=== PATIENT | female | born 1945 | race Caucasian/White ===

== ENCOUNTER 2020-01-10 16:18 | Emergency (ER) | payer OTHER ==
[~2020-01-10] VITALS: Ht 170.2 cm; Wt 70.8 kg
--- NOTE | 2020-01-10 16:43 | NUR ---
AN FROM HOME TO ER BED 7. AAOX4. NOT IN RESP DISTRESS, BREATHING EVEN ADN UNLABORED. AMBULATORY. CAME IN FOR UPPER ABDOMINAL PAIN. PT STATES THAT SHE HAVE PAIN ON HER TRANSVERSE COLON. PT ALSO REPORTS THAT SHE HAVE HX OF CROHN'S. MD WAS AT THE BEDSIDE FOR EVAL. PT DOES NOT AND LAB OR SCAN TO BE DONE. PT STATES THAT SHE WILL JUST FOLLOW UP WITH HER MD. PT VERBALIZED THAT HER ABDOMINAL PAIN IS BETTER
--- NOTE | 2020-01-10 16:47 | NUR ---
PT REFUSED LAB AND RADIOLOGY
--- NOTE | 2020-01-10 16:50 | NUR ---
Pt was offered to have transport back to her assisted living but refused. Pt wants to go to waiting room and will arrange transport with her family.
--- NOTE | 2020-01-10 16:58 | NUR ---
Patient discharged to home in stable condition. Written and verbal after care instructions given. Patient verbalizes understanding of instruction. Pt ambulatory with a steady gait w/ an aide of a cane.
--- NOTE | 2020-01-10 21:49 | NUR ---
SPOKE WITH SON, MIGUEL. SON WILL ARRANGE FOR SOMEONE TO PICK HER MOM UP. WILL CALL BACK FOR [employer] DETAILS
[2020-01-11] MEDS ORDERED: CLONIDINE HCL 0.1 MG TABLET PO ONE (10:30)
[2020-01-11] MEDS ORDERED: CLONIDINE HCL 0.1 MG TABLET ONE (10:31)
[2020-01-11 10:37] VITALS: BP 186/120
--- NOTE | 2020-01-11 10:37 | NUR ---
report given to [facility] for transport back to assisted living
== END 2020-01-10 17:00 | disposition home or self-care (01) ==
LOC: ER 16:21
DX: R10.13 Epigastric pain (principal); R11.0 Nausea; G89.29 Other chronic pain